=== PATIENT | female | born 1990 | race Caucasian/White ===

== ENCOUNTER 2017-11-09 11:29 | Emergency (ER) | payer BC, OTHER ==
[~2017-11-09 11:29] MED LIST: AMPH10TA20 PO; CIPR-344 PO; ETHI1TAB22 PO; GIANVI; KET10 PO; ONDA4TAB PO; ORAL BIRTH CONTROL; PHEN95TA44 PO
--- NOTE | 2017-11-09 11:37 | ER Report ---
History and Physical Time Seen By MD: 11:37 HPI/ROS CHIEF COMPLAINT: Cough HISTORY OF PRESENT ILLNESS: This is a 27-year-old female who presents to the emergency department for a cough. Patient states that this past Monday she had fevers, aches and chills, followed up on Monday with her primary care provider they tested her for flu was negative however the primary care felt that she still had flu treated her with Tamiflu. Patient states that some of her symptomology did improve however over the last day or so she's developed a cough with a persistent fever when she is not taking her ibuprofen or Tylenol. The cough is nonproductive. Mild headache. Loose stools no dysuria intermittent nausea. No rashes, visual changes or sore throat. REVIEW OF SYSTEMS: Constitutional: As above. Eyes: No discharge. ENT: No sore throat. Cardiovascular: No chest pain, no palpitations. Respiratory: As above. Gastrointestinal: As above. Genitourinary: No hematuria. Musculoskeletal: No back pain. Skin: No rashes. Neurological: As above. Allergies: Coded Allergies: erythromycin base (Verified Adverse Reaction, Intermediate, VOMITING, 03/18) Home Meds Active Scripts Ondansetron (ZOFRAN ODT) 4 Mg Tab.rapdis, 4 MG PO Q6H Y for NAUSEA/VOMITING, # 20 TAB.LOUIS Prov:JAG RAPP [facility] 11/09/17 Albuterol Sulfate 90 Mcg/Act (PROAIR HFA 90 MCG/ACT) 8.5 Gm Hfa.aer.ad, 2 PUFF IH Q4-6H, #1 INHALER 0 Refills Prov:JAG RAPP [facility] 11/09/17 Azithromycin 250 Mg Tab (AZITHROMYCIN 250 MG TAB) 250 Mg Tablet, 1 TAB PO QDAY, #6 TAB 0 Refills Take 2 tabs today and then 1 tab a day until gone. Prov:JAG RAPP [facility] 11/09/17 Reported Medications Multivitamin With Minerals (MULTIPLE VITAMIN) 1 Each Tablet, 1 EACH PO, TAB 11/09/17 Amphet Asp/Amphet/D-Amphet (ADDERALL 20 MG TABLET) 20 Mg Tablet, 40 MG PO QDAY 11/09/17 Discontinued Reported Medications Ethinyl Estradiol/Drospirenone (LORYNA 3 MG-0.02 MG TABLET) 1 Each Tablet, 1 EACH PO DAILY 03/18/15 Discontinued Scripts Ondansetron (ZOFRAN ODT) 4 Mg Tab.rapdis, 4 MG PO Q4-6H for Nausea, #6 TAB Prov:MIRNA STAPLETON MD 03/15/15 Past Medical/Surgical History Patient has no significant past medical or surgical history. Reviewed Nurses Notes: Yes Hx Smoking: No Smoking Status: Never Smoker Exposure to Second Hand Smoke?: No Hx Substance Use Disorder: No Hx Alcohol Use: Yes (OCC) Constitutional Vital Sign - Last 24 Hours 11/09/17 11/09/17 11/09/17 11/09/17 11:33 11:34 11:34 11:35 Temp 98.6 Pulse 106 66 Resp 18 B/P (MAP) 115/81 (92) 115/81 Pulse Ox 84 85 O2 Delivery Room Air Room Air 11/09/17 11/09/17 11/09/17 11/09/17 11:39 11:44 11:49 11:54 Pulse 90 86 78 81 Pulse Ox 95 95 96 95 11/09/17 11/09/17 11/09/17 11/09/17 11:59 12:00 12:04 12:09 Pulse 86 ??? Resp 12 41 B/P (MAP) 108/72 (84) Pulse Ox 96 11/09/17 11/09/17 11/09/17 11/09/17 12:14 12:19 12:24 12:29 Pulse ??? 84 87 92 Resp 17 10 35 15 Pulse Ox 100 97 97 11/09/17 11/09/17 11/09/17 11/09/17 12:30 12:34 12:39 12:44 Pulse 81 92 85 Resp 24 22 36 B/P (MAP) 112/73 (86) Pulse Ox 96 93 93 11/09/17 11/09/17 11/09/17 11/09/17 12:49 12:55 13:00 13:04 Pulse 92 95 76 Resp 10 16 30 B/P (MAP) 107/72 (84) Pulse Ox 90 100 11/09/17 11/09/17 11/09/17 11/09/17 13:13 13:19 13:30 13:34 Pulse 89 98 87 Resp 20 36 41 B/P (MAP) 114/76 (89) Pulse Ox 88 98 11/09/17 11/09/17 11/09/17 11/09/17 13:49 14:00 14:04 14:09 Pulse 89 91 95 Resp 46 40 24 B/P (MAP) 108/71 (83) Pulse Ox 96 100 96 11/09/17 11/09/17 11/09/17 11/09/17 14:24 14:39 14:54 15:00 Pulse ??? 73 82 Resp 12 17 B/P (MAP) 112/75 (87) Pulse Ox 99 96 11/09/17 11/09/17 15:09 15:39 Pulse 72 73 Resp 47 Pulse Ox 100 89 Intake and Output 11/09/17 11/09/17 11/10/17 15:00 23:00 07:00 Intake Total 1000 ml 100 ml Balance 1000 ml 100 ml Physical Exam General Appearance: The patient is alert, has no immediate need for airway protection and no signs of toxicity, sweating and hot to touch. Eyes: Pupils equal and round no pallor or injection. ENT, Mouth: Mucous membranes are moist. Erythema to the posterior oropharynx. TMs intact, pearly arroyo, landmarks noted, no bulging or injection. Respiratory: There are no retractions, lungs are clear to auscultation. Cardiovascular: Regular rate and rhythm, no murmurs, clicks or rubs. Gastrointestinal: Abdomen is soft and non tender, no masses, bowel sounds normal. Neurological: Alert and oriented 4. Moving all extremities. Following all commands. No focal neuro deficits. Skin: Warm and dry, no rashes. Warm to touch, beads of sweat on the back. Musculoskeletal: Neck is supple non tender. Extremities are nontender, nonswollen and have full range of motion. DIFFERENTIAL DIAGNOSIS: After history and physical exam differential diagnosis was considered for shortness of breath including but not limited to pulmonary infectious process, COPD, asthma, pulmonary embolus and congestive heart failure. Medical Decision Making Data Points Result Diagram: 11/09/17 1142 11/09/17 1142 Laboratory Hematology Test 11/09/17 11:42 Red Blood Count 5.05 M/uL (4.17-5.56) Mean Corpuscular Volume 88.7 fL (80.0-96.0) Mean Corpuscular Hemoglobin 30.4 pg (26.0-33.0) Mean Corpuscular Hemoglobin Concent 34.3 g/dL (32.0-36.0) Red Cell Distribution Width 13.9 % (11.5-14.5) Mean Platelet Volume 9.1 fL (7.2-11.1) Neutrophils (%) (Auto) 81.2 % (39.4-72.5) Lymphocytes (%) (Auto) 9.7 % (17.6-49.6) Monocytes (%) (Auto) 8.2 % (4.1-12.4) Eosinophils (%) (Auto) 0.7 % (0.4-6.7) Basophils (%) (Auto) 0.2 % (0.3-1.4) Nucleated RBC Relative Count (auto) 0.1 /100WBC Neutrophils # (Auto) 6.3 K/uL (2.0-7.4) Lymphocytes # (Auto) 0.7 K/uL (1.3-3.6) Monocytes # (Auto) 0.6 K/uL (0.3-1.0) Eosinophils # (Auto) 0.1 K/uL (0.0-0.5) Basophils # (Auto) 0.0 K/uL (0.0-0.1) Nucleated RBC Absolute Count (auto) 0.01 K/uL D-Dimer Quantitative (PE/DVT) 1.14 ug/ml (0-0.50) Sodium Level 139 mmol/L (137-145) Potassium Level 3.8 mmol/L (3.5-5.0) Chloride Level 101 mmol/L (98-107) Carbon Dioxide Level 25 mmol/L (22-31) Blood Urea Nitrogen 6 mg/dl (7-18) Creatinine 0.80 mg/dl (0.52-1.04) Glomerular Filtration Rate Calc > 60.0 Random Glucose 97 mg/dl (75-110) Calcium Level 8.9 mg/dl (8.4-10.2) Total Bilirubin 0.6 mg/dl (0.2-1.3) Aspartate Amino Transf (AST/SGOT) 25 U/L (0-35) Alanine Aminotransferase (ALT/SGPT) 30 U/L (0-56) Alkaline Phosphatase 55 U/L (0-126) Troponin I < 0.012 ng/ml Total Protein 7.3 g/dl (6.3-8.2) Albumin 3.6 g/dl (3.5-5.0) Human Chorionic Gonadotropin, Qual Negative (NEGATIVE) Chemistry Test 11/09/17 11:42 White Blood Count 7.7 k/uL (4.5-11.0) Red Blood Count 5.05 M/uL (4.17-5.56) Hemoglobin 15.4 g/dL (12.0-16.0) Hematocrit 44.8 % (34.0-47.0) Mean Corpuscular Volume 88.7 fL (80.0-96.0) Mean Corpuscular Hemoglobin 30.4 pg (26.0-33.0) Mean Corpuscular Hemoglobin Concent 34.3 g/dL (32.0-36.0) Red Cell Distribution Width 13.9 % (11.5-14.5) Platelet Count 186 K/uL (150-450) Mean Platelet Volume 9.1 fL (7.2-11.1) Neutrophils (%) (Auto) 81.2 % (39.4-72.5) Lymphocytes (%) (Auto) 9.7 % (17.6-49.6) Monocytes (%) (Auto) 8.2 % (4.1-12.4) Eosinophils (%) (Auto) 0.7 % (0.4-6.7) Basophils (%) (Auto) 0.2 % (0.3-1.4) Nucleated RBC Relative Count (auto) 0.1 /100WBC Neutrophils # (Auto) 6.3 K/uL (2.0-7.4) Lymphocytes # (Auto) 0.7 K/uL (1.3-3.6) Monocytes # (Auto) 0.6 K/uL (0.3-1.0) Eosinophils # (Auto) 0.1 K/uL (0.0-0.5) Basophils # (Auto) 0.0 K/uL (0.0-0.1) Nucleated RBC Absolute Count (auto) 0.01 K/uL D-Dimer Quantitative (PE/DVT) 1.14 ug/ml (0-0.50) Glomerular Filtration Rate Calc > 60.0 Calcium Level 8.9 mg/dl (8.4-10.2) Total Bilirubin 0.6 mg/dl (0.2-1.3) Aspartate Amino Transf (AST/SGOT) 25 U/L (0-35) Alanine Aminotransferase (ALT/SGPT) 30 U/L (0-56) Alkaline Phosphatase 55 U/L (0-126) Troponin I < 0.012 ng/ml Total Protein 7.3 g/dl (6.3-8.2) Albumin 3.6 g/dl (3.5-5.0) Human Chorionic Gonadotropin, Qual Negative (NEGATIVE) Coagulation Test 11/09/17 11:42 D-Dimer Quantitative (PE/DVT) 1.14 ug/ml EKG/Imaging EKG Interpretation 12 lead EKG: Time of EKG 1153. Rhythm: Normal sinus rhythm, ventricular rate 82 bpm. [place]: normal QRS: Low voltage QRS. ST segments: No ST depression or elevation identified. Poor T-wave progression. Imaging Location: [facility] Patient: Rebekah Oscar : 1990 Visit/Account:[id number] Date of Sevice: 11/09/2017 Exam type: CHEST PA AND LAT History: Respiratory distress, cough Comparison: None. Findings: There is streaky airspace consolidation in the lower lobes, left greater than right with adjacent peribronchial thickening. Bronchial thickening and mild interstitial prominence also noted in the midlung phillips. Mild blunting of the costophrenic angles likely related to small pleural effusions. The cardiac silhouette is normal in size. IMPRESSION: 1. Streaky airspace consolidation lower lobes, left greater than right with adjacent peribronchial thickening and additional interstitial prominence and bronchial thickening in the midlung phillips. Small bilateral pleural effusions. Findings are likely related to multifocal pneumonia Report Dictated By: Mariama Rodriguez MD at 11/09/2017 12:26 PM Report E-Signed By: Mariama Rodriguez MD at 11/09/2017 12:28 PM WSN:[email or web address] Location: [facility] Patient: Rebekah Oscar : 1990 Visit/Account:[id number] Date of Sevice: 11/09/2017 CT angiogram chest with contrast Indication: Shortness breath. Elevated d-dimer. Comparison: None available. Technique: Axial CT images are obtained through the chest after administration of 75 mL Isovue 370 IV contrast. Reformatted coronal and sagittal images were reviewed as well as coronal MIP images. One of the following dose optimization techniques was utilized in the performance of this exam: automated exposure control; adjustment of the mA and/ or kV according to the patient's size; or use of an iterative reconstruction technique. Specific details can be referenced in the facility's radiology CT exam operational policy. FINDINGS: No evidence of filling defect within the pulmonary vasculature to suggest pulmonary embolus. Heart is normal size without pericardial effusion. The aorta shows no aneurysm or dissection. The mediastinum and hilar regions show no abnormal density. There is a prominent lymph node seen in the right hilar region measures 1.7 x 1.4 cm which is nonspecific at this time. There are a few scattered small lymph nodes seen mediastinum and hilar regions without any other prominent or enlarged lymph nodes. The lungs do show a faint scattered reticulonodular opacities mainly in the periphery of both lungs. The lower lobes do show early small consolidation. There is very small bilateral pleural effusions present. No pneumothorax or other focal interstitial opacities. Airways are clear. Bony structures show no acute fractures or aggressive bony lesions. Chest wall shows no enlarged axillary lymph nodes or masses. Limited views of the upper abdomen are unremarkable. IMPRESSION: 1. No evidence of pulmonary embolus. 2. The lungs do show faint reticulonodular opacities seen mainly in the periphery of both lungs. This nonspecific and could be due to postinflammatory changes or interstitial nonspecific pneumonitis. 3. There are small bilateral pleural effusions with early small consolidation of the lower lobes which could be due to atelectasis or pneumonia. Report Dictated By: Roger Briseno at 11/09/2017 2:54 PM Report E-Signed By: Roger Briseno at 11/09/2017 3:04 PM WSN:[id number] ED Course/Re-evaluation Clinical Indication for ER IV: Hydration, IV Access ED Course The patient was admitted to a room. A history of physical were obtained. Differential diagnoses were considered. An IV was started. A CBC, CMP, troponin were obtained. Lab studies unremarkable. D-dimer obtained and positive. Two- view chest x-ray showing probable pneumonia. I did review the lab studies with the patient, in particular the d-dimer did tell her that this could indicate that she has a pulmonary embolus which we discussed earlier, the next step would be a CT of the chest. Patient is agreeable to the CT. CT is negative for pulmonary embolus, but showing faint reticulonodular opacities seen mainly in the periphery of both lungs. This nonspecific and could be due to postinflammatory changes or interstitial nonspecific pneumonitis. There are small bilateral pleural effusions with early small consolidation of the lower lobes which could be due to atelectasis or pneumonia. I did review these results with the patient, I did tell her that I'll go ahead and treat her for bacterial pneumonia she has been febrile with aches and chills with the increased shortness of breath. Patient is agreeable with this plan and care. I also trialed the patient several times on room air, did ambulate her and the oxygen saturation did drop down to 83% on room air. We'll go ahead and send the patient home with home oxygen therapy and she will follow-up with her primary care provider within one week for reevaluation or return to the emergency department for any other concerns. Patient is agreeable with this plan of care. A prescription for azithromycin was sent to the patient's pharmacy. A MDI albuterol inhaler was sent to the patient's pharmacy as well. Patient did receive a 1 L normal saline bolus in the emergency department as well as 4 mg IV Zofran and 1 g of IV ceftriaxone. 11/09/2017 12:50:47 pm I did review the lab studies and the chest x-ray with the patient. I did tell her with her recent extended travel to [place], and her symptoms I'm concerned about a PE, I did tell her I'm going to add a d-dimer and if this positive then we will go ahead and CT her chest. Patient is in agreement with this plan of care. 11/09/2017 1:40:37 pm patient's d-dimer is elevated, I did review this with the patient. I did tell her that It would be a CTA of the chest, patient is in agreement with this plan of care. I also recommended a Lovenox injection, the patient is very afraid of needles and declined at this time. I did turn the patient's oxygen back on I had her on a room air trial, the oxygen saturation did drop down to 85-86%. Decision to Disposition Date: Nov 09, 2017 Decision to Disposition Time: 16:03 Depart Departure Latest Vital Signs Vital Signs Date Time Temp Pulse Resp B/P (MAP) Pulse Ox O2 Delivery O2 Flow Rate FiO2 11/09/17 15:39 73 89 11/09/17 15:09 47 11/09/17 15:00 112/75 (87) 11/09/17 11:35 Room Air 11/09/17 11:34 98.6 Impression: Primary Impression: Community acquired pneumonia Condition: Improved Disposition: HOME OR SELF-CARE Referrals: HOLLY SERRATO MD (PCP) New Scripts Ondansetron (ZOFRAN ODT) 4 Mg Tab.rapdis 4 MG PO Q6H Y for NAUSEA/VOMITING, #20 TAB.LOUIS Prov: JAG RAPP [facility] 11/09/17 Albuterol Sulfate 90 Mcg/Act (PROAIR HFA 90 MCG/ACT) 8.5 Gm Hfa.aer.ad 2 PUFF IH Q4-6H, #1 INHALER 0 Refills Prov: JAG RAPP [facility] 11/09/17 Azithromycin 250 Mg Tab (AZITHROMYCIN 250 MG TAB) 250 Mg Tablet 1 TAB PO QDAY, #6 TAB 0 Refills Take 2 tabs today and then 1 tab a day until gone. Prov: JAG RAPP [facility] 11/09/17 Departure Forms: ER Transition Record, Home Oxygen, Nebulizer RX, Home Oxygen Company Chosen by Patient: Durable Medical Equipment-Oxygen: Oxygen Concentrator, Portable Oxygen Gas Reason for Use/Diagnosis: Pneumonia, hypoxia Start Date of the Order: Nov 09, 2017 Dosage or Concentration (if applicable) - LPM: 2 Route of Administration (if applicable): Nasal Cannula Frequency of Use: Continuous Duration Home O2 Required: 30 Duration Units: Days Room Air Oxygen Saturation: 83 ER Prescribing Physician's Name: Other NPI Numbers for Local ER MDs: Other Medications Reconciliation, Patient Portal Information Patient Instructions: Community Acquired Pneumonia (ED) Additional Instructions: Drink plenty of water. Get plenty of rest. Stop the Tamiflu. Start taking the Azithromycin, be sure to complete the coarse. Follow up with your primary care provider within one week. Return to the ED for any other concerns or worsening symptoms. Wear the oxygen until you follow up with your provider for reevaluation. Problem Qualifiers Primary Impression: Community acquired pneumonia Laterality: unspecified laterality Qualified Codes: J18.9 - Pneumonia, unspecified organism JAG RAPP [facility]- Nov 09, 2017 11:37
[2017-11-09] MEDS ORDERED: AMPH20TA18 PO (11:46)
[2017-11-09] MEDS ORDERED: NS(*) 0.9% 1000 ML BAG 1,000 ML IV ONE (11:46)
[2017-11-09] MEDS ORDERED: MULT-1335 PO (11:46)
[2017-11-09] MEDS ORDERED: ONDANSETRON 4 MG/2 ML VIAL IVP ONE (11:55)
--- NOTE | 2017-11-09 11:58 | EKG ---
[place] [facility] [place] TETO BURCIAGA : [id number] MR: [id number] V: [id number] EXAM DATE: ORDERING PHYSICIAN: JAG RAPP TECHNOLOGIST: [place] Reason : SOB Blood Pressure : / mmHG Vent. Rate : 082 BPM Atrial Rate : 082 BPM P-R Int : 132 ms QRS Dur : 074 ms QT Int : 360 ms P-R-T Axes : 062 084 052 degrees QTc Int : 420 ms Normal sinus rhythm Low voltage QRS Borderline ECG No previous ECGs available Confirmed by LYNN STEVEN ([id number]) on 11/10/2017 6:48:05 AM Referred By: GENESIS Confirmed By:LYNN STEEVN
[2017-11-09 12:00] LABS: PLATELET COUNT, AUTOMATED 186 K/uL (150-450)
--- NOTE | 2017-11-09 12:32 | RADIOLOGY IMAGING REPORT ---
[place] [facility] [place] NAME: Rebekah Oscar : 1990 MR: [id number] V: [id number] EXAM DATE: ORDERING PHYSICIAN: JAG RAPP TECHNOLOGIST: Location: [facility] Patient: Rebekah Oscar : 1990 Visit/Account:[id number] Date of Sevice: 11/09/2017 Exam type: CHEST PA AND LAT History: Respiratory distress, cough Comparison: None. Findings: There is streaky airspace consolidation in the lower lobes, left greater than right with adjacent per ibronchial thickening. Bronchial thickening and mild interstitial prominence also noted in the midlung phillips. Mild bluntin g of the costophrenic angles likely related to small pleural effusions. The cardiac silhouette is no rmal in size. IMPRESSION: 1. Streaky airspace consolidation lower lobes, left greater than right with adjacent peribronchial t hickening and additional interstitial prominence and bronchial thickening in the midlung phillips. Sma ll bilateral pleural effusions. Findings are likely related to multifocal pneumonia Report Dictated By: Mariama Rodriguez MD at 11/09/2017 12:26 PM Report E-Signed By: Mariama Rodriguez MD at 11/09/2017 12:28 PM WSN:[email or web address]
[2017-11-09] MEDS ORDERED: ALBUTEROL/IPRATROPIUM 3 ML NEB NEB ONE (12:45)
[2017-11-09] MEDS ORDERED: IOPAMIDOL 76% 100 ML INFUS BTL 100 ML ONE (13:52)
[2017-11-09] MEDS ORDERED: NS 0.9% 25 ML BAG 0 ML ONE (14:03)
[2017-11-09] MEDS ORDERED: NS 0.9% 25 ML BAG 25 ML ONE (14:05)
[2017-11-09 15:00] VITALS: BP 112/75
--- NOTE | 2017-11-09 15:08 | RADIOLOGY IMAGING REPORT ---
FACILITY: [facility] [place] PATIENT NAME: Rebekah Oscar : 1990 MR: [id number] V: [id number] EXAM DATE: ORDERING PHYSICIAN: JAG RAPP TECHNOLOGIST: Location: [facility] [place] Patient: Rebekah Oscar : 1990 Visit/Account:[id number] Date of Sevice: 11/09/2017 CT angiogram chest with contrast Indication: Shortness breath. Elevated d-dimer. Comparison: None available. Technique: Axial CT images are obtained through the chest after administration of 75 mL Isovue 370 IV contrast. Reformatted coronal and sagittal images were reviewed as well as coronal MIP images. One of the following dose optimization techniques was utilized in the performance of this exam: auto mated exposure control; adjustment of the mA and/or kV according to the patient's size; or use of an iterative reconstruction technique. Specific details can be referenced in the facility's radiology C T exam operational policy. FINDINGS: No evidence of filling defect within the pulmonary vasculature to suggest pulmonary embolus. Heart is normal size without pericardial effusion. The aorta shows no aneurysm or dissection. The med iastinum and hilar regions show no abnormal density. There is a prominent lymph node seen in the righ t hilar region measures 1.7 x 1.4 cm which is nonspecific at this time. There are a few scattered sma ll lymph nodes seen mediastinum and hilar regions without any other prominent or enlarged lymph nodes . The lungs do show a faint scattered reticulonodular opacities mainly in the periphery of both lungs. The lower lobes do show early small consolidation. There is very small bilateral pleural effusions pr esent. No pneumothorax or other focal interstitial opacities. Airways are clear. Bony structures show no acute fractures or aggressive bony lesions. Chest wall shows no enlarged axil fernando lymph nodes or masses. Limited views of the upper abdomen are unremarkable. IMPRESSION: 1. No evidence of pulmonary embolus. 2. The lungs do show faint reticulonodular opacities seen mainly in the periphery of both lungs. This nonspecific and could be due to postinflammatory changes or interstitial nonspecific pneumonitis. 3. There are small bilateral pleural effusions with early small consolidation of the lower lobes whic h could be due to atelectasis or pneumonia. Report Dictated By: Roger Briseno at 11/09/2017 2:54 PM Report E-Signed By: Roger Briseno at 11/09/2017 3:04 PM WSN:[id number]
[2017-11-09] MEDS ORDERED: AZIT-18 PO (15:19)
[2017-11-09] MEDS ORDERED: cefTRIAXone(*) 1 GM VIAL 1 GM in NS(*) 0.9% 100 ML ADDVANT BAG 100 ML IVPB ONE (15:20)
[2017-11-09] MEDS ORDERED: ALBU8.5H IH (15:55)
[2017-11-09] MEDS ORDERED: ONDA4TAB PO (16:20)
== END 2017-11-09 16:20 | disposition home or self-care (01) ==
LOC: ER 11:34
DX: J18.9 Pneumonia, unspecified organism (principal); J90 Pleural effusion, not elsewhere classified
CPT/HCPCS: 71046; 71275; 84484; 84703; 85025; 85379; 93005; 94640; 96361; 96365; 99285; J0696; J7030; J7050; J7620; Q9967; 82040; 82247; 82310; 82374; 82435; 82565; 82947; 84075; 84132; 84155; 84295; 84450; 84460; 84520